=== PATIENT | female | born 1955 | race African-American/Black ===

== ENCOUNTER 2017-12-17 10:49 | Emergency (ER) | payer OTHER ==
[~2017-12-17] VITALS: Ht 160 cm; Wt 81.5 kg
[~2017-12-17 10:49] MED LIST: ATOR40TA PO; HYDR-2768 PO; METO50TA PO
[2017-12-17 10:50] VITALS: BP 141/75; PULSE 77; RESP 16; TEMP 98.9; O2SAT 99
--- NOTE | 2017-12-17 11:38 | RADRPT ---
EXAM DATE/TIME: 12/17/2017 11:33 [place] COMPARISON: No previous studies available for comparison. INDICATIONS : Fever and cough. MEDICAL HISTORY : Asthma SURGICAL HISTORY : None. ENCOUNTER: Initial ACUITY: 1 week PAIN SCORE: 0/10 LOCATION: Bilateral chest FINDINGS: PA and lateral views of the chest demonstrate the lungs to be symmetrically aerated without evidence of mass, infiltrate or effusion. The cardiomediastinal contours are unremarkable. Osseous structure s are intact. CONCLUSION: No acute disease. There is no evidence of pneumonia. Phuc Reilly MD on December 17, 2017 at 11:35 Board Certified Radiologist. This report was verified electronically.
[2017-12-17] MEDS ORDERED: ATOR40TA16 PO (12:05)
[2017-12-17] MEDS ORDERED: ARTHRITIS MEDS (12:05)
[2017-12-17] MEDS ORDERED: HYDR25TA5 PO (12:05)
[2017-12-17] MEDS ORDERED: LISI40TA PO (12:05)
[2017-12-17 12:07] VITALS: PULSE 65; RESP 16; O2SAT 99
[2017-12-17 12:11] LABS: BILIRUBIN, URINE NEG (NEG); BLOOD, URINE NEG (NEG); GLUCOSE,URINE NEG (NEG); KETONE, URINE NEG (NEG); NITRITE,URINE NEG (NEG); PH, URINE 5.5 (5.0-8.5); SQUAMOUS EPITHELIAL CELL URINE <1 /hpf (0-5); URINE COLOR LIGHT-YELLOW (YELLW/STRAW); URINE LEUKOCYTE ESTERASE NEG (NEG)
[2017-12-17 12:16] LABS: AUTOMATED NEUTROPHIL # 4.9 TH/MM3 (1.8-7.7); BASOPHIL % 0.3 % (0.0-2.0); EOSINOPHIL # 0.1 TH/MM3 (0-0.4); EOSINOPHIL % 1.5 % (0.0-4.0); HEMATOCRIT 40.5 % (35.0-46.0); HEMOGLOBIN 13.6 GM/DL (11.6-15.3); LYMPH % 37.1 % (9.0-44.0); LYMPHOCYTE # 3.4 TH/MM3 (1.0-4.8); MEAN CELL VOLUME 88.4 FL (80.0-100.0); MEAN CORPUSCULAR HEMOGLOBIN 29.8 PG (27.0-34.0); MEAN CORPUSCULAR HGB CONC 33.7 % (32.0-36.0); MEAN PLATELET VOLUME 8.7 FL (7.0-11.0); MONO % 6.8 % (0.0-8.0); MONOCYTE # 0.6 TH/MM3 (0-0.9); NEUT % 54.3 % (16.0-70.0); PLATELET COUNT 264 TH/MM3 (150-450); RED BLOOD COUNT 4.58 MIL/MM3 (4.00-5.30); RED CELL DISTRIBUTION WIDTH 14.2 % (11.6-17.2); WHITE BLOOD COUNT 9.1 TH/MM3 (4.0-11.0)
[2017-12-17 12:28] LABS: ALBUMIN 3.7 GM/DL (3.4-5.0); AST (GOT) 12 U/L (15-37); BICARBONATE 29.4 MEQ/L (21.0-32.0); BLOOD UREA NITROGEN 8 MG/DL (7-18); CALCIUM 9.2 MG/DL (8.5-10.1); CHLORIDE 104 MEQ/L (98-107); CREATININE 0.67 MG/DL (0.50-1.00); GLOMERULAR FILTRATION RATE 108 ML/MIN (>89); GLUCOSE,RANDOM 96 MG/DL (74-106); SODIUM (NA) 137 MEQ/L (136-145)
[2017-12-17 12:29] LABS: ALT (GPT) 12 U/L (10-53)
[2017-12-17 12:31] LABS: ALKALINE PHOSPHATASE 86 U/L (45-117); TOTAL BILIRUBIN ADULT 0.4 MG/DL (0.2-1.0)
[2017-12-17] MEDS ORDERED: ZITHTAB PO (12:46)
--- NOTE | 2017-12-17 12:47 | PD ---
HPI Chief Complaint: Cold / Flu Symptoms Time Seen by Provider: 12:13 Travel History International Travel<30 days: No Contact w/Intl Traveler<30days: No Traveled to known affect area: No History of Present Illness HPI 62-year-old female came to the emergency room with history of cough for past 1 week. Patient says she has been coughing so much that her head hurts, her chest hurts and all her body hurts. She has been coughing up yellowish to greenish color sputum. There have been several family members at home were sick with these symptoms. No history of fever or chills. No history of diarrhea. Patient says that when she goes into the coughing fits she ends up vomiting as well. Patient had blood work and chest x-ray ordered from triage which were all done by the time I went to see the patient. Vital signs are stable including oxygen saturation of 99%. Patient has history of asthma and says that she does not want to take her albuterol since it irritates her throat. [facility] Past Medical History Narrative Medical List of her medical, surgical, social and family history reviewed from the nursing note. Arthritis: Yes (LT KNEE) Asthma: Yes Autoimmune Disease: No Blood Disorders: No Anxiety: No Depression: No Heart Rhythm Problems: No Cancer: No Cardiovascular Problems: Yes High Cholesterol: Yes Chemotherapy: No Chest Pain: No Congestive Heart Failure: No COPD: No Cerebrovascular Accident: No Diabetes: No Diminished Hearing: No Endocrine: No GERD: Yes Glaucoma: No Genitourinary: No Headaches: No Hepatitis: No Hiatal Hernia: No Hypertension: Yes Immune Disorder: No Kidney Stones: No Musculoskeletal: Yes Neurologic: No Psychiatric: No Reproductive: No Respiratory: No Migraines: No Myocardial Infarction: No Radiation Therapy: No Renal Failure: No Seizures: No Sickle Cell Disease: No Sleep Apnea: No Thyroid Disease: No Ulcer: Yes (1977) Menopausal: Yes Tubal Ligation: Yes Past Surgical History Abdominal Surgery: No AICD: No Appendectomy: No Arteriovenous Shunt: No Cardiac Surgery: No Cholecystectomy: No Ear Surgery: No Endocrine Surgery: No Eye Surgery: No Genitourinary Surgery: No Gynecologic Surgery: Yes (TUBAL LIGATION) Insulin Pump: No Joint Replacement: No Oral Surgery: No Pacemaker: No Thoracic Surgery: No Other Surgery: Yes Social History Alcohol Use: No Tobacco Use: No Substance Use: No Allergies-Medications (Allergen,Severity, Reaction): Coded Allergies: latex (Verified Allergy, Mild, Rash, 12/17/17) Comments List of her allergies reviewed from the nursing note. Reported Meds & Prescriptions Reported Meds & Active Scripts Active Zithromax Z-Yousif (Azithromycin) 250 Mg Dspk 250 Mg PO DIRECTED 500 MG (2 tabs) day 1, then 1 tab days 2-5. Reported [arthritis meds] Lisinopril 40 Mg Tab 40 Mg PO DAILY Hydrochlorothiazide 25 Mg Tab 25 Mg PO DAILY Atorvastatin (Atorvastatin Calcium) 40 Mg Tab 40 Mg PO HS Narrative Medication List of her home medications reviewed from the nursing note. Review of Systems Except as stated in HPI: all other systems reviewed are Neg Respiratory: Positive: Cough Physical Exam Narrative GENERAL: Awake, alert, mild distress SKIN: Focused skin assessment warm/dry. HEAD: Atraumatic. Normocephalic. EYES: Pupils equal and round. No scleral icterus. No injection or drainage. ENT: No nasal bleeding or discharge. Mucous membranes pink and moist. NECK: Trachea midline. No JVD. CARDIOVASCULAR: Regular rate and rhythm. No murmur appreciated. RESPIRATORY: No accessory muscle use. Clear to auscultation. Breath sounds equal bilaterally. GASTROINTESTINAL: Abdomen soft, non-tender, nondistended. Hepatic and splenic margins not palpable. MUSCULOSKELETAL: No obvious deformities. No clubbing. No cyanosis. No edema. NEUROLOGICAL: Awake and alert. No obvious cranial nerve deficits. Motor grossly within normal limits. Normal speech. PSYCHIATRIC: Appropriate mood and affect; insight and judgment normal. Data Data Last Documented VS Orders Orders Complete Blood Count With Diff (12/17/17 11:19) Comprehensive Metabolic Panel (12/17/17 11:19) Lipase (12/17/17 11:19) Urinalysis - C+S If Indicated (12/17/17 11:19) Chest, Pa & Lat (12/17/17 ) Ed Discharge Order (12/17/17 12:47) Labs Laboratory Tests Test 12/17/17 11:25 12/17/17 11:40 Urine Color LIGHT-YELLOW Urine Turbidity CLEAR Urine pH 5.5 Urine Specific [place] 1.006 Urine Protein NEG mg/dL Urine Glucose (UA) NEG mg/dL Urine Ketones NEG mg/dL Urine Occult Blood NEG Urine Nitrite NEG Urine Bilirubin NEG Urine Urobilinogen LESS THAN 2.0 MG/DL Urine Leukocyte Esterase NEG Urine RBC 1 /hpf Urine WBC LESS THAN 1 /hpf Urine Squamous Epithelial Cells <1 /hpf Microscopic Urinalysis Comment CULT NOT INDICATED White Blood Count 9.1 TH/MM3 Red Blood Count 4.58 MIL/MM3 Hemoglobin 13.6 GM/DL Hematocrit 40.5 % Mean Corpuscular Volume 88.4 FL Mean Corpuscular Hemoglobin 29.8 PG Mean Corpuscular Hemoglobin Concent 33.7 % Red Cell Distribution Width 14.2 % Platelet Count 264 TH/MM3 Mean Platelet Volume 8.7 FL Neutrophils (%) (Auto) 54.3 % Lymphocytes (%) (Auto) 37.1 % Monocytes (%) (Auto) 6.8 % Eosinophils (%) (Auto) 1.5 % Basophils (%) (Auto) 0.3 % Neutrophils # (Auto) 4.9 TH/MM3 Lymphocytes # (Auto) 3.4 TH/MM3 Monocytes # (Auto) 0.6 TH/MM3 Eosinophils # (Auto) 0.1 TH/MM3 Basophils # (Auto) 0.0 TH/MM3 CBC Comment DIFF FINAL Differential Comment Blood Urea Nitrogen 8 MG/DL Creatinine 0.67 MG/DL Random Glucose 96 MG/DL Total Protein 8.0 GM/DL Albumin 3.7 GM/DL Calcium Level 9.2 MG/DL Alkaline Phosphatase 86 U/L Aspartate Amino Transf (AST/SGOT) 12 U/L Alanine Aminotransferase (ALT/SGPT) 12 U/L Total Bilirubin 0.4 MG/DL Sodium Level 137 MEQ/L Potassium Level 3.7 MEQ/L Chloride Level 104 MEQ/L Carbon Dioxide Level 29.4 MEQ/L Anion Gap 4 MEQ/L Estimat Glomerular Filtration Rate 108 ML/MIN Lipase 113 U/L [facility] Medical Decision Making Medical Screen Exam Complete: Yes Emergency Medical Condition: Yes Medical Record Reviewed: Yes Differential Diagnosis Pneumonia, bronchitis, asthma Narrative Course 12:45 PM blood test results appear to be within normal limit. Chest x-ray is negative for pneumonia. I have heavily stressed upon the fact that she should be using her albuterol every 4-6 hours. I will give her a prescription of Zithromax. Patient will be discharged home. Procedures EKG Prior to Arrival: No Diagnosis Primary Impression: Cough Additional Impression: Bronchitis Referrals: Primary Care Physician Additional Instructions: Please use your albuterol inhaler 2 puffs every 4-6 hours until symptoms improve. Take the medication as per the prescription direction. Return to the ER if condition worsens or any other new concerns Med/Other Pt SpecificInfo: Prescription(s) given Scripts Azithromycin (Zithromax Z-Yousif) 250 Mg Dspk 250 MG PO DIRECTED for Infection, #1 DSPK 0 Refills 500 MG (2 tabs) day 1, then 1 tab days 2-5. Prov: Suman Terry MD 12/17/17 Disposition: 01 DISCHARGE HOME Condition: Stable Suman Terry MD Dec 17, 2017 12:47
== END 2017-12-17 13:07 | disposition home or self-care (01) ==
LOC: NEPE 10:49
DX: J40 Bronchitis, not specified as acute or chronic (principal); E78.00 Pure hypercholesterolemia, unspecified; I10 Essential (primary) hypertension
CPT/HCPCS: 71046; 80053; 81001; 83690; 85025; 99284

== ENCOUNTER 2018-02-05 08:18 | Emergency (ER) | payer OTHER ==
[~2018-02-05] VITALS: Ht 162.6 cm; Wt 85.0 kg
[~2018-02-05 08:18] MED LIST changes: +ARTHRITIS MEDS; -ATOR40TA PO; +ATOR40TA16 PO; -HYDR-2768 PO; +HYDR25TA5 PO; +LISI40TA PO; -METO50TA PO; +ZITHTAB PO
[2018-02-05 08:20] VITALS: BP 137/77; PULSE 90; RESP 18; TEMP 97.3; O2SAT 98
[2018-02-05] MEDS ORDERED: MELO7.5T27 PO (08:50)
[2018-02-05] MEDS ORDERED: LYRI75CA PO (08:50)
[2018-02-05] MEDS ORDERED: LOSA100T PO (08:50)
[2018-02-05] MEDS ORDERED: KETOROLAC TROMETHAMINE 60 MG/2 ML (IM) VIAL IM ONE (09:00)
[2018-02-05] MEDS ORDERED: predniSONE 20 MG TAB PO ONE (09:00)
--- NOTE | 2018-02-05 09:10 | PD ---
HPI Chief Complaint: Pain: Acute or Chronic Time Seen by Provider: 08:47 Travel History International Travel<30 days: No Contact w/Intl Traveler<30days: No Traveled to known affect area: No History of Present Illness HPI 63-year-old F Polish female presents emergency department with long history of osteoarthritis. Patient currently takes meloxicam and Lyrica for her arthritis. Patient states she has had a recent flare over the past week mainly in the right ankle, hand, and shoulder. Is gotten progressively worse over the past week she feels she cannot "take it anymore". 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 She denies numbness, tingling, or weakness. She is currently been seen by an arthritis specialist as well as starting pain management currently. Currently her pain is 10 out of 10 and described as stiff and burning. She has taken prednisone in the past. She is allergic to latex. PFSH Past Medical History Arthritis: Yes (LT KNEE) Asthma: Yes Autoimmune Disease: No Blood Disorders: No Anxiety: No Depression: No Heart Rhythm Problems: No Cancer: No Cardiovascular Problems: Yes High Cholesterol: Yes Chemotherapy: No Chest Pain: No Congestive Heart Failure: No COPD: No Cerebrovascular Accident: No Diabetes: No Diminished Hearing: No Endocrine: No GERD: Yes Glaucoma: No Genitourinary: No Headaches: No Hepatitis: No Hiatal Hernia: No Hypertension: Yes Immune Disorder: No Kidney Stones: No Musculoskeletal: Yes Neurologic: No Psychiatric: No Reproductive: No Respiratory: Yes (ASTHMA) Migraines: No Myocardial Infarction: No Radiation Therapy: No Renal Failure: No Seizures: No Sickle Cell Disease: No Sleep Apnea: No Thyroid Disease: No Ulcer: Yes (1977) Tetanus Vaccination: > 5 Years Influenza Vaccination: Yes ?: Not Menopausal: Yes Tubal Ligation: Yes Past Surgical History Abdominal Surgery: No AICD: No Appendectomy: No Arteriovenous Shunt: No Cardiac Surgery: No Cholecystectomy: No Ear Surgery: No Endocrine Surgery: No Eye Surgery: No Genitourinary Surgery: No Gynecologic Surgery: Yes (TUBAL LIGATION) Insulin Pump: No Joint Replacement: No Oral Surgery: No Pacemaker: No Thoracic Surgery: No Other Surgery: Yes Social History Alcohol Use: No Tobacco Use: No Substance Use: No Allergies-Medications (Allergen,Severity, Reaction): Coded Allergies: latex (Verified Allergy, Mild, Rash, 02/05/18) Reported Meds & Prescriptions Reported Meds & Active Scripts Active Reported Meloxicam 7.5 Mg Tab 7.5 Mg PO DAILY Lyrica (Pregabalin) 75 Mg Cap 75 Mg PO BID Losartan (Losartan Potassium) 100 Mg Tab 100 Mg PO DAILY [arthritis meds] Hydrochlorothiazide 25 Mg Tab 25 Mg PO DAILY Atorvastatin (Atorvastatin Calcium) 40 Mg Tab 40 Mg PO HS Review of Systems Except as stated in HPI: all other systems reviewed are Neg General / Constitutional: No: Fever Eyes: No: Visual changes HENT: No: Headaches Cardiovascular: No: Chest Pain or Discomfort Respiratory: No: Shortness of Breath Gastrointestinal: No: Abdominal Pain Genitourinary: No: Dysuria Musculoskeletal: Positive: Arthralgias, Limited ROM, Pain (See history of present illness) Skin: No Rash Neurologic: No: Weakness Psychiatric: No: Depression Endocrine: No: Polydipsia Hematologic/Lymphatic: No: Easy Bruising Physical Exam Narrative GENERAL: Patient appears in mild to moderate distress per SKIN: Warm and dry. Normal color. Normal turgor. No erythema. No rash. HEAD: Atraumatic. Normocephalic. EYES: Pupils equal and round. No scleral icterus. No injection or drainage. ENT: No nasal bleeding or discharge. Mucous membranes pink and moist. Pharynx is clear. Airways patent. NECK: Trachea midline. Supple and nontender. CARDIOVASCULAR: Regular rate and rhythm. RESPIRATORY: No accessory muscle use. Clear to auscultation. Breath sounds equal bilaterally. GASTROINTESTINAL: Abdomen soft, non-tender, nondistended. Hepatic and splenic margins not palpable. MUSCULOSKELETAL: Extremities without clubbing, cyanosis, or edema. No obvious deformities. Patient has pain with palpation along the neck, right shoulder, right wrist and hand, and right ankle consistent with osteoarthritis flare. There are no other significant findings noted. NEUROLOGICAL: Awake and alert. No obvious cranial nerve deficits. Motor grossly within normal limits. Five out of 5 muscle strength in the arms and legs. Normal speech. PSYCHIATRIC: Appropriate mood and affect; insight and judgment normal. Data Data Last Documented VS Vital Signs Date Time Temp Pulse Resp B/P (MAP) Pulse Ox O2 Delivery O2 Flow Rate FiO2 02/05/18 08:44 17 02/05/18 08:20 97.3 90 137/77 (97) 98 Orders Orders Ketorolac Inj (Toradol Inj) (02/05/18 09:00) Prednisone (Deltasone) (02/05/18 09:00) [facility] Medical Decision Making Medical Screen Exam Complete: Yes Emergency Medical Condition: Yes Medical Record Reviewed: Yes Differential Diagnosis Osteoarthritis. Pain. Neck pain. Wrist pain. Hand pain. Ankle pain. Narrative Course Patient appears medically stable at time of exam. Radiographic or labs not felt warranted based on my history and physical. Patient is given 60 mg Toradol IM. Patient is given prednisone 40 mg p.o. Patient be sent home on prednisone taper as directed. Patient is given tramadol 50 mg every 6 hours as needed pain #20. Work note is given. Patient to follow-up with her specialist as discussed. Diagnosis Primary Impression: Primary osteoarthritis involving multiple joints Referrals: Primary Care Physician Patient Instructions: General Instructions, Osteoarthritis (ED) Additional Instructions: Radiographic or labs not felt warranted based on my history and physical. Patient is given 60 mg Toradol IM. Patient is given prednisone 40 mg p.o. Patient be sent home on prednisone taper as directed. Patient is given tramadol 50 mg every 6 hours as needed pain #20. Work note is given. Patient to follow-up with her specialist as discussed. Med/Other Pt SpecificInfo: Prescription(s) given Scripts Tramadol (Tramadol) 50 Mg Tab 50 MG PO Q6H Y for PAIN, #20 TAB 0 Refills Prov: Gail Rowley MD 02/05/18 Prednisone (48) 10 mg tab Dose Pack (Prednisone (48) 10 mg tab Dose Pack) 10 Mg Dspk 10 MG PO DIRECTED for Inflammation, #1 DSPK 0 Refills Prov: Gail Rowley MD 02/05/18 Disposition: 01 DISCHARGE HOME Condition: Stable Brad Figueroa Feb 05, 2018 09:10
[2018-02-05] MEDS ORDERED: TRAM50TA PO (09:11)
[2018-02-05] MEDS ORDERED: PRED10PA2 PO (09:11)
== END 2018-02-05 09:35 | disposition home or self-care (01) ==
LOC: NEPD 08:18
DX: M19.91 Primary osteoarthritis, unspecified site (principal)
CPT/HCPCS: 96372; 99284; J1885; J7512